=== PATIENT | female | born 1945 | race Caucasian/White ===

== ENCOUNTER 2023-08-18 07:09 | Outpatient (CLI) | payer OTHER ==
[2023-08-18 07:45] LABS: HEMATOCRIT 44.3 % (36.0-45.00); HEMOGLOBIN 14.7 g/dL (12.0-15.00); MEAN CELL VOLUME 82.3 fL (80.00-100.00); MEAN CORPUSCULAR HEMOGLOBIN 27.3 pg (27.00-32.0); MEAN CORPUSCULAR HGB CONC 33.2 g/dl (32.0-36.0); PLATELET COUNT 346 K/uL (150-450); RED BLOOD COUNT 5.38 M/uL (4.00-6.00); RED CELL DISTRIBUTION WIDTH 16.6 % (11.5-14.5)
[2023-08-18 07:54] LABS: ERYTHROCYTE SEDIMENTATION RATE 35 mm/hr
== END 2023-08-18 14:50 | disposition home or self-care (01) ==
LOC: LAB 07:09
PROVIDERS: ATTEND Orthopaedic Surgery
DX: M06.4 Inflammatory polyarthropathy (principal)

== ENCOUNTER → 2024-07-12 11:28 | Outpatient (CLI) | payer OTHER ==
[2024-07-12 12:51] LABS: BILIRUBIN TOTAL 1.14 mg/dL (0.3-1.2); CALCIUM 9.9 mg/dL (8.5-10.1); CREATININE SERUM 0.8 mg/dL (0.55-1.02); GFR 69.19; GLOBULINA 3.3 G/DL (2.4-3.5); MAGNESIUM 2.3 mg/dL (1.8-2.4); PHOSPHOROUS 3.8 mg/dL (2.5-4.9); POTASSIUM 4.01 mEq/L (3.5-5.1); TOTAL PROTEIN 7.3 gm/dL (6.4-8.2)
[2024-07-20 17:10] LABS: VITAMIN K < 0.10 ng/mL (0.10-2.20)
== END | disposition home or self-care (01) ==
LOC: LAB 11:28
PROVIDERS: ATTEND Orthopaedic Surgery
DX: E55.9 Vitamin D deficiency, unspecified (principal); M85.9 Disorder of bone density and structure, unspecified; E56.1 Deficiency of vitamin K; E21.3 Hyperparathyroidism, unspecified; E88.89 Other specified metabolic disorders; M81.8 Other osteoporosis without current pathological fracture